=== PATIENT | female | born 1990 | race Asian ===

== ENCOUNTER 2017-11-13 15:48 | Emergency (ER) | payer OTHER ==
[2017-11-13 15:59] VITALS: BP 109/74; PULSE 75; TEMP 97.9; BMI 22.6
[2017-11-13] MEDS ORDERED: HIV POST EXPOSURE PROPHYLAXIS KIT NR ONE (16:32)
--- NOTE | 2017-11-13 16:38 | PDOC ---
Post Exposure HPI - General Chief Complaint: Non EmpBld/Body Flud Exposure Stated Complaint: NEEDLESTICK Time Seen by Provider: 11/13/17 16:11 History Source: Patient Exam Limitations: No Limitations - History of Present Illness Initial Comments: 11/13/17 16:33 CHIEF COMPLAINT: Stuck with insulin needle the left second finger. HISTORY OF PRESENT ILLNESS: Patient is a 27-year-old female, employee [employer] [facility] [employer] was giving a patient an insulin injection, the insulin needle went through pad of left second finger. HIV status of source patient is unknown he does have a history of cirrhosis. I have spoken to patient's supervisor packing room Jessa at [phone] who states that source patient will be tested for HIV and hepatitis. Her tetanus is up-to-date was also vaccinated for hepatitis b. Timing: just prior to arrival Severity: moderate Exposed Location: Left: Finger(s) Assessing Significant Risk PEP: Yes Potentially Infectious Fluid Past History - Past Medical History Allergies/Adverse Reactions: Allergies Allergy/AdvReac Type Severity Reaction Status Date / Time No Known Allergies Allergy Verified 11/13/17 15:55 Home Medications: Ambulatory Orders NK [No Known Home Medication] 11/13/17 COPD: No Other medical history: DENIES. - Suicide/Smoking/Psychosocial Hx Smoking History: Never smoked Review of Systems - Review of Systems Constitutional: No: Symptoms Reported Integumentary: Yes: Other (small puncture wound with bruise noted to pad of left second digit.). No: Symptoms Reported Neurological: No: Symptoms reported Hematologic/Lymphatic: No: Symptoms Reported All Other Systems: Reviewed and Negative *Physical Exam - Vital Signs Last Vital Signs Temp Pulse Resp BP Pulse Ox 97.9 F 75 19 109/74 98 11/13/17 15:56 11/13/17 15:56 11/13/17 15:56 11/13/17 15:56 11/13/17 15:56 - Physical Exam General Appearance: Yes: Appropriately Dressed. No: Apparent Distress HEENT: positive: Other (conjunctiva anicteric) Respiratory/Chest: positive: Lungs Clear, Normal Breath Sounds Cardiovascular: positive: Regular Rhythm, Regular Rate Extremity: positive: Normal Capillary Refill, Normal Inspection, Normal Range of Motion. negative: Swelling, Erythema Integumentary: positive: Bruising. negative: Erythema, Swelling, Ecchymosis Neurologic: positive: Alert, Normal Mood/Affect Post Exposure - ED Protocol - Exposure Treatment Washing/Decontamination: Soap/Water Source Patient HIV Status:: Unknown Is PEP indicated?: Yes Prophylaxis for HIV discussed?: Yes Prophylaxis given?: Yes Prophylaxis refused?: No Treatment Given:: Truvada (Tenof+Emtricita), Isentress (Raltegravir) Drug(s) Information Sheets given:: Yes Baseline bloods drawn prophylaxis:(use *Exposure-Hosp Emp): Yes - Referrals Employee Referred to Infectious Disease Specialist:: Thompson Smiley Other Post Exposure pt. referral to PCP: Yes Medical Decision Making - Medical Decision Making 11/13/17 16:40 A/P: Patient here for needlestick to left second digit, needle went through pad of finger and tip was seen on the other side. I have spoken to patient supervisor packing room who will have source patient tested baseline labs were sent here, PEP dispensed. Patient to follow-up with infectious disease. 11/13/17 18:01 HIV is negative, patient can follow up for other results of labs. PEP dispensed , follow-up with infectious disease. Laboratory Results - last 24 hr 11/13/17 11/13/17 11/13/17 16:50 16:50 16:50 WBC 4.5 RBC 4.31 Hgb 13.5 Hct 39.3 MCV 91.2 MCH 31.3 MCHC 34.3 RDW 13.7 Plt Count 208 MPV 9.1 Neutrophils % 56.2 Lymphocytes % 37.4 Monocytes % 5.6 Eosinophils % 0.4 Basophils % 0.4 Sodium 140 Potassium 4.0 Chloride 106 Carbon Dioxide 28 Anion Gap 6 L BUN 15 Creatinine 0.6 Creat Clearance w eGFR > 60 Random Glucose 85 Uric Acid 3.2 Calcium 8.8 Phosphorus 3.9 Total Bilirubin 0.7 GGT 18 AST 15 ALT 16 Alkaline Phosphatase 54 LD Total 165 Total Protein 7.3 Albumin 4.2 Triglycerides 54 Cholesterol 191 HIV 1&2 Antibody Screen Negative HIV P24 Antigen Negative *DC/Admit/Observation/Transfer Diagnosis at time of Disposition: Needle stick injury of finger of left hand Qualifiers: Encounter type: initial encounter Qualified Code(s): S61.239A - Puncture wound without foreign body of unspecified finger without damage to nail, initial encounter - Discharge Dispostion Disposition: HOME Condition at time of disposition: Stable - Referrals Referrals: Thompson Smiley MD [Staff Physician] - - Patient Instructions Printed Discharge Instructions: How to Handle Body Fluid Exposure -- Non- Healthcare Worker (At Home, Caregi Additional Instructions: Please follow-up with infectious disease you have been given medication one of the medication is only a seven-day supply the other is 30, and will need a refill as soon as possible to complete the 7 day supply course of therapy. Please make sure to make an appointment upon discharge to follow-up. Please follow-up with source patient HIV and hepatitis status. - Post Discharge Activity Forms/Work/School Notes: Back to Work
[2017-11-13] MEDS ORDERED: HIV POST EXPOSURE PROPHYLAXIS KIT PO ONE (17:00)
[2017-11-13 17:10] LABS: BASO % 0.4 % (0-2.0); EOS % 0.4 % (0-4.5); HEMATOCRIT 39.3 % (32.4-45.2); HEMOGLOBIN 13.5 GM/dL (10.7-15.3); LYMPH % 37.4 % (8-40); MCH 31.3 pg (25.7-33.7); MCHC 34.3 g/dl (32.0-36.0); MEAN CELL VOLUME 91.2 fl (80-96); MEAN PLT VOLUME 9.1 fl (7.5-11.1); MONO % 5.6 % (3.8-10.2); NEUT % 56.2 % (42.8-82.8); PLATELET COUNT 208 K/MM3 (134-434); RBC 4.31 M/mm3 (3.60-5.2); RDW 13.7 % (11.6-15.6); WHITE BLOOD COUNT 4.5 K/mm3 (4.0-10.0)
[2017-11-13 18:00] LABS: ALBUMIN 4.2 g/dl (3.4-5.0); ANION GAP 6 (8-16); BLOOD UREA NITROGEN 15 mg/dL (7-18); CALCIUM 8.8 mg/dL (8.5-10.1); CHLORIDE 106 mmol/L (98-107); CHOLESTEROL 191 mg/dL (50-200); CO2 28 mmol/L (21-32); CREATININE 0.6 mg/dL (0.55-1.02); GAMMA GLUTAMYL TRANSPEPTIDASE 18 U/L (5-85); GLUCOSE,RANDOM 85 mg/dL (74-106); LDH 165 U/L (84-246); PHOSPHOROUS 3.9 mg/dL (2.5-4.9); SGOT/AST 15 U/L (15-37); SGPT/ALT 16 U/L (12-78); SODIUM 140 mmol/L (136-145); TOT PROT 7.3 g/dl (6.4-8.2); URIC ACID 3.2 mg/dL (2.6-7.2)
[2017-11-13 18:14] LABS: ALK PHOS 54 U/L (45-117); BILIRUBIN,TOTAL 0.7 mg/dL (0.2-1.0); TRIGLYCERIDES 54 mg/dL (35-160)
[2017-11-15 08:09] LABS: HBsAG SCREEN Negative (Negative); HEPATITIS B CORE ANTIBODY Negative (Negative)
== END 2017-11-13 18:34 | disposition home or self-care (01) ==
LOC: JERFT 15:48 → EDSEX 15:48 → JERFT 18:34
DX: S61.231A Puncture wound without foreign body of left index finger without damage to nail, initial encounter (principal); W46.1XXA Contact with contaminated hypodermic needle, initial encounter; Y93.F9 Activity, other caregiving; Y92.128 Other place in nursing home as the place of occurrence of the external cause; Y99.0 Civilian activity done for income or pay
CPT/HCPCS: 36415; 80053; 82465; 82977; 83615; 84100; 84478; 84550; 85025; 86704; 87340; 87389; 99281-25